=== PATIENT | female | born 1985 | race Caucasian/White ===

== ENCOUNTER 2017-11-15 19:49 | Emergency (ER) | payer BC | END 2017-11-15 20:53 | disposition home or self-care (01) | LOC: ER 19:50 | DX: L30.9 Dermatitis, unspecified (principal) | CPT/HCPCS: Z7502 ==

== ENCOUNTER 2019-08-16 02:27 | Emergency (ER) | payer BC ==
[~2019-08-16] VITALS: Ht 160 cm; Wt 73.5 kg
[2019-08-16 02:37] VITALS: BP 125/75
--- NOTE | 2019-08-16 02:55 | NUR ---
CHANGE DEXAMETHASONE IV ORDER TO GIVE DEXAMETHASONE PO INSTEAD PER DR. CASANOVA VERBAL ORDER
[2019-08-16] MEDS ORDERED: DEXAMETHASONE SOLN 5 MG/5 ML UDC ONE (02:59)
[2019-08-16] MEDS ORDERED: DEXAMETHASONE SOD PHOSPHATE 10 MG in IV D5W 50 ML IV ONE (03:00)
== END 2019-08-16 03:58 | disposition home or self-care (01) ==
LOC: ER 02:29
DX: J02.8 Acute pharyngitis due to other specified organisms (principal)
CPT/HCPCS: 70360; 99283; J8540; J1100; J7060